=== PATIENT | male | born 1960 | race Caucasian/White ===

== ENCOUNTER → 2021-06-29 16:04 | Outpatient (BNVA) | payer OTHER, SELFPAY | PROVIDERS: Visit Provider Nurse Practitioner Family | DX: E11.9 Type 2 diabetes mellitus without complications (principal); E29.1 Testicular hypofunction; I10 Essential (primary) hypertension; R79.89 Other specified abnormal findings of blood chemistry; Z76.89 Persons encountering health services in other specified circumstances | CPT/HCPCS: 82043 ==

== ENCOUNTER → 2021-07-06 09:37 | Outpatient (BNVA) | payer OTHER, SELFPAY | PROVIDERS: Visit Provider Nurse Practitioner Family | DX: I10 Essential (primary) hypertension (principal); R79.89 Other specified abnormal findings of blood chemistry; E11.9 Type 2 diabetes mellitus without complications; E29.1 Testicular hypofunction | CPT/HCPCS: 80053; 80061; 83036; 84403; 84443; 85025 ==